=== PATIENT | female | born 1990 | race Caucasian/White ===

== ENCOUNTER 2021-04-13 08:24 | Outpatient (CLI) | payer OTHER, SELFPAY ==
--- NOTE | 2021-04-13 08:51 | ECHO_ITS ---
Patient Info Name: Mariposa Mariscal Age: 31 years : 1990 Gender: Female Ht: 69 in Wt: 163 lbs BSA: 1.90 m2 HR: 55 bpm Technical Quality: Good Exam Date: 04/13/2021 9:07 AM Exam Location: [facility] Patient Status: Outpatient Admit Date: 04/13/2021 Staff Ordering Physician: Cristina Choudhury NP Design Manager: VANE Attending Provider: Cristina Choudhury NP Referring Physician: Kei SAMPSON; Exam Type: CA echo doppler color flow Study Info Indications R42 - Dizziness and giddiness Complete two-dimensional, color flow and Doppler transthoracic echocardiogram is performed. Summary 1. Complete two-dimensional, color flow and Doppler transthoracic echocardiogram is performed. 2. Left ventricular chamber dimension is normal. 3. Left ventricular systolic function is normal, estimated at 60-65%. 4. The left ventricular diastolic function is normal. 5. E/e' 7 is not elevated. 6. There is trace tricuspid valve regurgitation. 7. No pulmonary hypertension, estimated pulmonary arterial systolic pressure is 23 mmHg. Left Ventricle E/e' 7 is not elevated. Left ventricular chamber dimension is normal. Left ventricular systolic function is normal, estimated at 60-65%. The left ventricular diastolic function is normal. Right Ventricle Right ventricular chamber dimension is normal. Right ventricular systolic function is normal. Left Atria Left atrial chamber dimension is normal. Right Atria Right atrial chamber dimension is normal. Aortic Valve The aortic valve is trileaflet. There is no aortic valve stenosis. There is no aortic valve regurgitation. Pulmonic Valve There is no pulmonic regurgitation. Mitral Valve There is no mitral valve stenosis. There is no mitral valve regurgitation. Tricuspid Valve There is trace tricuspid valve regurgitation. No pulmonary hypertension, estimated pulmonary arterial systolic pressure is 23 mmHg. Pericardium/Pleural There is no pericardial effusion. Inferior Vena Cava Normal inferior vena cava with >50% collapse upon inspiration consistent with normal right atrial pressure, 5 mmHg. Aorta The aortic root size at the sinus of Valsalva is normal. Left Ventricular Outflow Tract Name Value Normal LVOT 2D LVOT Diameter 2.2 cm LVOT Doppler LVOT Peak Gradient 6 mmHg LVOT Mean Gradient 4 mmHg LVOT VTI 28 cm LVOT VTI/AV VTI Ratio 0.7 LVOT Stroke Volume 109 ml LVOT CO 20.9 l/min LVOT CI 11.0 l/min/m2 Pulmonic Valve Name Value Normal PV Doppler PV Peak Gradient 4 mmHg Mitral Valve Name
== END 2021-04-13 08:25 | disposition home or self-care (01) ==
PROVIDERS: PCP Nurse Practitioner; Visit Provider Nurse Practitioner Family
DX: R42 Dizziness and giddiness (principal)
CPT/HCPCS: 93306

== ENCOUNTER 2021-08-27 07:25 | Day surgery (SDC) | payer OTHER, SELFPAY ==
[2021-08-13 10:26] VITALS: BMI 24.3
--- NOTE | 2021-08-26 08:17 | WPDANESEPPF ---
Anes - Initial Pre Proc Eval Procedure: Operation Date: 08/27/21 09:00 Proposed Procedures p Bilateral Breast Augmentation Mammoplasty - Panda Tellez MD Date/Time: 08/26/21 08:17 Surgeon: Panda Tellez MD Pre Op Diagnosis: Micromastia Patient Data Age: 31 Gender: F Height: 1.75 m Weight: 74.843 kg Allergies Allergy/AdvReac Type Severity Reaction Status Date / Time No Known Allergies Allergy Verified 08/27/21 07:52 Home Medications Medication Instructions Recorded Confirmed Type cholecalciferol (vitamin D3) 50 2,000 unit PO DAILY tablet 06/17/20 08/27/21 History mcg (2,000 unit) tablet cariprazine 1.5 mg capsule 1.5 mg PO DAILY 02/19/21 08/27/21 History escitalopram oxalate 20 mg tablet 20 mg PO DAILY 02/19/21 08/27/21 History eszopiclone 3 mg tablet 3 mg PO QHS 02/19/21 08/27/21 History topiramate 25 mg tablet 100 mg PO BID tablet 02/19/21 08/27/21 History erenumab-aooe 140 mg/mL 140 mg SUBCUT MONTHLY 06/28/21 08/27/21 History subcutaneous auto-injector carisoprodol 350 mg tablet 350 mg PO TID PRN #21 tablet 08/11/21 08/27/21 Rx docusate sodium 100 mg capsule 100 mg PO DAILY #14 cap 08/11/21 08/27/21 Rx ondansetron HCl 4 mg tablet 4 mg PO Q8H #21 tablet 08/11/21 08/27/21 Rx oxycodone-acetaminophen 5 mg-325 1 tablet PO Q6H PRN #15 tablet 08/11/21 08/27/21 Rx mg tablet fluticasone propionate [Flonase] 1 spray INTRANASAL DAILY 08/13/21 08/27/21 History montelukast [Singulair] 10 mg PO DAILY 08/13/21 08/27/21 History rimegepant [Nurtec ODT] 75 mg PO ONCE PRN 08/13/21 08/27/21 History sumatriptan 5 mg INTRANASAL Q2-4H PRN 08/13/21 08/27/21 History meclizine 25 mg tablet 25 mg PO TID PRN #30 tablet 08/17/21 08/27/21 Rx methylprednisolone 4 mg tablets in See Rx Instructions PO PER PKG DIR 08/17/21 08/27/21 Rx a dose pack #21 ea Patient hx anesthesia problems: none Family hx anesthesia problems: none Results Review: All pre-operative results and documents have been reviewed as part of the pre-operative evaluation. PMFSH Past Medical History Medical History Anxiety Irritable bowel syndrome Migraine with aura and with status migrainosus, not intractable Vitamin D deficiency Surgical History Surgical History Hx of tubal ligation Family History Family History Mother Family history of multiple sclerosis Grandparent Hypertension Family history of Alzheimer's disease Family history of dementia Social History Social History Smoking status: Unknown if ever smoked Alcohol intake: never Substance use: never Living arrangements: with family Spiritual care concerns: No Anes - Eval Final PreProcedure Day of Procedure 08/26/21 08:17 Patient weight: normal Heart: regular rate and rhythm Lungs: clear to auscultation and normal air movement Airway: Mallampati scale class II Neurological: alert and oriented Last oral intake: >/= 8 hours ASA classification: II Emergent: no Anesthetic plan: proceed Anesthesia type and monitoring: general LMA and standard monitoring Results Review: All pre-operative results and documents have been reviewed as part of the pre-operative evaluation. Informed Consent: The patient's anesthetic plan and its attendant risks and benefits were discussed with the patient/family/POA. Questions were solicited and answers provided to the satisfaction of the patient/family/POA.
[2021-08-27] VITALS (11 sets, daily range): BP systolic 89–107; BP diastolic 52–64; PULSE 51–63; RESP 13–18; TEMP 36.4–37.3; O2SAT 98–100; BMI 23.8
[2021-08-27] MEDS: SCOPOLAMINE 1.5 MG PATCH TRANSDERM (08:12)
[2021-08-27] MEDS: LACTATED RINGERS 1,000 ML 30 ML IV CONT (08:12)
--- NOTE | 2021-08-27 08:21 | WPDHPUPDATE1 ---
History and Physical Update Update Date/Time: 08/27/21 08:21 History and Physical has been reviewed, including an updated exam of the patient. There are NO changes in the patient's condition. Risks, benefits, and alternatives have been discussed and questions answered. Patient agrees to proceed with procedure.
--- NOTE | 2021-08-27 08:32 | W.PM.PROC2 ---
Procedure Note - Detailed Date of Procedure 08/27/21 Pre-op Diagnosis Micromastia Post-op Diagnosis same Procedure Performed Bilateral Augmentation Mammaplasty Surgeon Panda Tellez MD Anesthesia general Findings Bilateral Abdullahi Saline Breast Implant Right - REF# [id number] SN [id number] filled to 370cc Left - REF# [id number] SN [id number] filed to 370cc Description of Procedure She is here today for bilateral breast augmentation. Previously and again today the risks, benefits, alternatives were discussed in extensive detail. I wanted her to be very realistic about the risks involved as well as expectations. We discussed aftercare and what to monitor for. Made sure answered all of her questions to her satisfaction today and consent was obtained. Marked in the preoperative holding area with their verification. The patient was taken to the operating room placed supine on the operating table. Anesthesia was provided by anesthesiology. A surgical time-out was taken. We cleansed the skin and 1% lidocaine and 0.25% Marcaine with epinephrine was used anesthetize as a field block. She was prepped and draped in a standard sterile fashion. Tegaderm nipple Zavaleta were placed. A 15 blade used to make an incision along the inframammary fold. Dissection was continued at 45 degree angle until the chest wall as identified. I incised the pectoralis major along its inferior border and completely released the inferior border leaving the medial border intact. I created a subpectoral pocket in the appropriate dimensions based on our preoperative planning for the implant. I then copiously irrigated with saline solution and verified a strict hemostasis. Next the use a triple antibiotic and Betadine containing solution to irrigate the pocket. I washed my gloves with the triple antibiotic and Betadine solution. We washed the implant immediately upon opening it with this solution and only opened it when we needed it. Air was removed on the back table and implant introduced into the pocked. I then filled with a fill kit. Verified volume and removed fill kit. Verified fill valve was seated. The implant was introduced into the pocket using the funnel. Having verified positioning of the implant this was closed using 2-0 Vicryl followed by 3-0 Monocryl in a running subcuticular 4-0 Monocryl followed by tissue glue. Fluffs, Venu wrap, and surgical bra were placed. Patient was awoke and taken to PACU without difficulty. All instrument sponge counts were correct at the end of the case. Estimated Blood Loss 20 Drains No Packing No Pathology none sent Complications No immediate complications Condition stable Disposition PACU
[2021-08-27] MEDS: ceFAZolin SODIUM 2 GM/20 ML SW SYRINGE IV PUSH (08:43)
[2021-08-27] MEDS: BUPIVACAINE HCL 0.25% 50 ML VIAL INFILTRATE (09:04)
[2021-08-27] MEDS: LIDO 1%/EPINEPHRINE 1:100,000 20 ML VIAL 30 ML INFILTRATE (09:11)
[2021-08-27] MEDS: fentaNYL CITRATE INJ (*CRX) 100 MCG/2 ML VIAL 25 MCG IV PUSH ×4 (10:10→10:50)
[2021-08-27] MEDS: oxyCODONE HCL (*CRX) 5 MG TAB IR PO (11:27)
--- NOTE | 2021-08-27 12:41 | WPDANESPN ---
Anes - Prog Note Post-Op Date/Time: 08/27/21 1210 Cardiovascular status: normal Respiratory status: normal Airway patency: baseline Mental status: baseline Post-Op hydration status: normal Vital Signs: Last Vital Signs Temp 36.4 C 08/27/21 09:56 Pulse 52 L 08/27/21 11:55 Resp 16 08/27/21 11:55 BP 98/55 L 08/27/21 11:55 Pulse Ox 99 08/27/21 11:55 Pain Score (VAS): 3 I/O: Intake & Output 08/26/21 08/27/21 08/27/21 23:59 07:59 15:59 Intake Total 1000 Balance 1000 Post-procedural complaints: none Patient Feedback: Patient satisfied with anesthetic care. Other Findings: Patient vital signs back to baseline. Patient denies nausea and vomiting. Patient's pain under control. Patient OK for discharge.
== END 2021-08-27 12:15 | disposition home or self-care (01) ==
PROVIDERS: PCP Nurse Practitioner Family; Visit Provider Surgery Plastic and Reconstructive Surgery
PROC: (CPT 19325; principal; 2021-08-27 09:00)
DX: N64.82 Hypoplasia of breast (principal)
CPT/HCPCS: 19325

== ENCOUNTER 2021-09-08 13:19 | Outpatient (RCR) | payer OTHER, SELFPAY ==
--- NOTE | 2021-09-08 14:43 | PTOPEVAL ---
PHYSICAL THERAPY EVALUATION AND PLAN OF CARE 09-09-21 Thank you for referring Mariposa Mariscal to [facility] [place] She is scheduled to be seen for therapy? 1-2 x/week for 5 weeks. Please review, sign, date and return this plan of care DAVID. I agree with and certify that the following plan of care is medically necessary. Referring Physician Date Attending Provider: Cristina Choudhury NP PT Outpatient Evaluation Document 09/08/21 13:30 ZEESHAN (Rec: 09/08/21 14:43 ZEESHAN [id number]) Assessment Status Evaluation Outpatient Past Medical History Past Medical History Source of Past Medical History Recalled from Previous Visit, Confirmed with Patient/Family Neurological History Hx Migraine Yes: 4x/wk, take meds to ease; no trigger identified-?foods Cardiovascular History Hx Cardiac Disorders No Significant History Respiratory History Hx Other Respiratory Disorders Yes: allergic to cats,trees, mold; Gastrointestinal History Hx Irritable Bowel Yes Genitourinary History Hx Genitourinary Disorders No Significant History Musculoskeletal History Hx Fractures Yes: arm at 11 yr, no hardware Hematological History Hx Hematological Disorders No Significant History Endocrine History Hx Endocrine Disorders No Significant History HEENT History Hx Tonsillectomy Yes: as a kid Integumentary History Hx Skin Disorders No Significant History Reproductive History Hx Tubal Ligation Yes: 2018 Psychosocial History Hx Anxiety Yes: meds; Hx Bipolar Disorder Yes Pain History History of Any Previous or Ongoing No Significant History Instance of Pain Anesthesia History Hx Anesthesia Reactions No Significant History Other History Hx Other Surgeries Yes: B breast augmentation Aug- still recovering Evaluation Information Problem Diagnosis dizziness Onset February 2021 Prior Level of Function Activity Level (Last 3 Months) Occupation manager collection at [employer] Activity of Daily Living Ability Independent Indoor/Home Mobility Independent Community Mobility Independent Stairs Ability Independent Functional Cognition (Planning, Shopping Independent , Taking Medications) Medications Home Meds (Include: OTC, RX, Vitamins, vit D, cariprazine, Herbals, Dose, Route,and Frequency) escitalopram, eszopiclone, Query Text:Home Med Entries Will No topiramate, carisoprodol, Longer Recall From Past Visits. Home docusate sodium, ondansetron Meds Must Be Re-entered With Each Visit. HCL, flonase, singulair, rimegepant, sumatriptan,
--- NOTE | 2021-09-15 14:00 | PCPTNOTE ---
Patient's scheduled appointment was cancelled this date due to not having any symptoms since her last visit & started taking her prednisone. Spoke with PT and will hold therapy for now, patient will call if she has any issues.
--- NOTE | 2022-01-24 13:36 | PCPTNOTE ---
LATE ENTRY Discharge PT services 01-24-22 Attending Provider: Cristina Choudhury NP Patient:Mariposa Mariscal Date of :1990 Mariposa has not returned for any further treatments since the PT evaluation on 09/08/2021, for the diagnosis of dizziness. Therefore she will be discharged at this time. The goals were not addressed. Thank you for referring this patient to [facility]. Please review, sign, date and return this discharge summary DAVID. I have been updated about the patient's current status and I agree with discharge from the above service at this time. Referring Physician Date
== END 2021-11-23 08:40 | disposition home or self-care (01) ==
LOC: ANHPT 13:19
PROVIDERS: PCP Nurse Practitioner Family; Visit Provider Nurse Practitioner Family
DX: R42 Dizziness and giddiness (principal)
CPT/HCPCS: 97161

== ENCOUNTER → 2021-11-18 02:24 | Outpatient (CLI) | payer OTHER, SELFPAY ==
[2021-11-18 13:40] LABS: Influenza Control Positive
[2021-11-19 14:05] LABS: SARS-CoV-2 RNA PCR Positive
== END ==
PROVIDERS: PCP Nurse Practitioner Family; Visit Provider Nurse Practitioner
DX: R50.9 Fever, unspecified (principal); U07.1 COVID-19
CPT/HCPCS: 87804; C9803; U0003; U0005

== ENCOUNTER → 2022-11-01 10:30 | Outpatient (CLI) | payer OTHER, SELFPAY ==
--- NOTE | ~2022-11-01 | XR_ITS ---
Left Knee Technique: AP, lateral, and oblique views were obtained. Clinical History: Pain Findings: No fracture or dislocation is seen. Osseous alignment is anatomic. Joint spaces are preserv ed without degenerative or erosive change. Soft tissues are unremarkable. No joint effusion is seen. Impression: Unremarkable left knee radiographs. Reviewed, dictated and finalized at location [] ER HELPER Impression: Unremarkable left knee radiographs.
== END ==
PROVIDERS: PCP Nurse Practitioner; Visit Provider Nurse Practitioner
DX: M25.562 Pain in left knee (principal)
CPT/HCPCS: 73564

== ENCOUNTER → 2023-03-29 15:15 | Outpatient (CLI) | payer OTHER, SELFPAY ==
--- NOTE | ~2023-03-29 | XR_ITS ---
EXAMINATION: SACRUM/COCCYX DATE: 03/29/2023 15:27 INDICATION: Tail bone pain. No acute injury. TECHNIQUE: Three views sacrum/coccyx FINDINGS: No prior studies for comparison. There is no displaced fracture of the sacrum. The coccyx demonstrates overall normal morphology with out acute angulation. IMPRESSION: 1. No acute displaced osseous abnormality of the sacrum. Suspicion for occult or nondisplaced sacral fracture can either be evaluated with CT or MRI. 2. Grossly normal morphology to the coccyx. Reviewed, dictated and finalized at location B.
== END ==
PROVIDERS: PCP Family Medicine; Visit Provider Family Medicine
DX: M53.3 Sacrococcygeal disorders, not elsewhere classified (principal)
CPT/HCPCS: 72220

== ENCOUNTER 2023-05-04 08:38 | Outpatient (CLI) | payer OTHER, SELFPAY ==
--- NOTE | 2023-05-22 10:43 | WPDHOMESLEEP ---
Sleep Study - Home Unattended Date of Study: 05/04/23 Ordering Provider: Nelsy Chen MD Interpreting Provider: Nelsy Chen MD Home Sleep Study Type: Watch PAT Height: 1.75 m Weight: 69.4 kg Body Mass Index: 22.6 Neck Circumference (inches): 12.75 Olden: 15 Reason for Sleep Study Hypersomnia Sleep History Mariposa Mariscal is a 33-year-old female with history of difficulty falling asleep and staying asleep. She has Bipolar depression, migraine headaches and nasal allergies. At times, she can fall asleep while sitting down. She has tried various sleep medications. She is now being tested to evaluate for obstructive sleep apnea syndrome. She has used zolpidem, Lunesta, Seroquel and trazodone. She rarely awakens from sleep short of breath. She frequently awakens at night with heartburn, belching or cough.??She rarely snores, rarely snores loudly enough that others complain. She rarely has trouble sleeping when she has a cold. She rarely suddenly wakes up gasping for breath during the night. She rarely has breathing problems at night. She constantly sweats excessively at night. She occasionally notices her heart pounding or beating irregularly during the night. She frequently falls asleep during the day. She occasionally falls asleep while driving. She never experiences loss of muscle tone with strong emotion. She never feels paralyzed on waking or falling asleep. She frequently experiences vivid dreams upon waking or falling asleep. She rarely feels afraid of going to sleep. She frequently frequently has nightmares. She constantly recalls her dreams. She always has thoughts racing through her mind. She occasionally feels sad or depressed. She constantly feels anxiety or worry about things. She rarely notices parts of her body jerk. She constantly kicks during the night. She rarely feels crawling or aching feelings in her legs. She rarely feels leg pain at night. She frequently grinds her teeth, occasionally has morning jaw pain. She never feels bothered by pain during the day nor is she awakened by pain during the night. She never wakes up feeling stiff, sore, or achy in the morning. Occasionally, she wakes with pain in the neck and spine. ? ? Normal bedtime is around 6:00 p.m. to 8:00 p.m., taking about 1 and a half to 2 hours to fall asleep. She typically gets about 6-8 hours of sleepat night according to a wearable jean paul. Her wake up time is 2:45 a.m. She may wake up 2-3 times during the night. If this happens, she may stay in bed trying to return to sleep or moved to the living room. On weekends, bedtime is later, 8:00 p.m. to 10:00 p.m., and her wake time is 5:00 a.m.. She does not take naps in the afternoon or evening. A short nap lasting 10 or 15 minutes is not refreshing. She is usually drowsy on waking. She feels better in the morning compared to other times of day. Habits:??Tobacco:never Caffeine : 1 serving a day. Alcohol: none. Recreational substances: none. [facility] Past Medical History Medical History Allergies Anxiety Headache Hyperthyroidism Iron deficiency Irritable bowel syndrome Migraine with aura and with status migrainosus, not intractable Vitamin D deficiency Surgical History Surgical History H/O breast augmentation (~08/22/21) Hx of tonsillectomy Hx of tubal ligation (~05/2018) Family History Family History Mother Family history of multiple sclerosis Grandparent Hypertension Family history of Alzheimer's disease Family history of dementia Diabetes mellitus Cerebrovascular accident Other Colon cancer Hypertension Cerebrovascular accident Father Hypertension Sibling Depression Social History Social History Smoking status: Never smoker Alcohol intake: per
[2023-05-22 11:24] VITALS: BMI 22.6
== END 2023-05-09 12:02 | disposition home or self-care (01) ==
LOC: ANHCSM 08:39
PROVIDERS: PCP Family Medicine; Visit Provider Internal Medicine Critical Care Medicine
DX: G47.10 Hypersomnia, unspecified (principal); G47.19 Other hypersomnia
CPT/HCPCS: 95800